=== PATIENT | female | born 1930 | race Caucasian/White ===

== ENCOUNTER 2017-05-06 16:36 | Emergency (ER) | payer BC, OTHER ==
[~2017-05-06] VITALS: Ht 167.6 cm; Wt 68.0 kg
[2017-05-06] MEDS ORDERED: PIPERACILLIN-TAZOB 3.375GM 50 ML IV ONE (17:15)
[2017-05-06 17:47] LABS: Basophils # (auto) 0 uL; Eosinophils # (auto) 0.1 uL; Hemoglobin 7.7 g/dL (12.2-16.2); Lymphocytes # (auto) 0.3 uL; Monocytes # (auto) 0.2 uL; Neutrophils # (auto) 2.3 uL
[2017-05-06 17:49] LABS: Basophils % (auto) 1.2 % (0.0-2.0); Eosinophils % (auto) 3.3 % (0.0-7.0); Lymphocytes % (auto) 9.6 % (10.0-50.0); Mean Corpuscular Hgb Conc. 33.5 g/dL (32.0-36.0); Mean Corpuscular Volume 104.5 fL (80.0-100.0); Neutrophils % (auto) 77.9 % (37.0-80.0); Nucleated Red Blood Cells % 0.3 %; Red Blood Cells 2.21 10^6/uL (4.0-5.20)
[2017-05-06 18:05] LABS: Alanine Aminotransferase 15 U/L (13-56); Albumin 2.9 g/dL (3.4-5.0); Anion Gap 11 (5-15); Aspartate Aminotransferase 19 U/L (15-37); BUN/Creatinine Ratio 50.6; Calcium 7.7 mg/dL (8.5-10.1); Carbon Dioxide 26 mmol/L (21-32); Chloride 103 mmol/L (98-107); GFR African American 37 mL/min; GFR Non-African American 30 mL/min; Glucose 116 mg/dL (74-106); Potassium 3.7 mmol/L (3.5-5.1); Sodium 140 mmol/L (136-145)
[2017-05-06 18:09] LABS: Alkaline Phosphatase 59 U/L (45-117); Bilirubin, Total 0.6 mg/dL (0.2-1.0); Total Protein 7.2 g/dL (6.4-8.2)
[2017-05-06 18:18] LABS: Blood Urea Nitrogen 86 mg/dL (7-18)
[2017-05-06 18:20] LABS: Platelet Count (auto) 33 10^3/uL (140-450)
[2017-05-07 00:01] VITALS: BP 100/47
== END 2017-05-07 00:21 | disposition home or self-care (01) ==
LOC: ER 16:36 → EDBD 16:36 → ER 05-07 00:21
DX: L03.116 Cellulitis of left lower limb (principal); R53.1 Weakness; I96 Gangrene, not elsewhere classified; I11.0 Hypertensive heart disease with heart failure; I50.9 Heart failure, unspecified; E11.9 Type 2 diabetes mellitus without complications
CPT/HCPCS: 36415; 71045; 73700; 80053; 82962; 83605; 84484; 85025; 87040; 93005; 96365; 96366; 99285; J2543